=== PATIENT | male | born 1970 | race African-American/Black ===

== ENCOUNTER 2018-03-27 18:16 | Observation (INO) ==
[2018-03-27] MEDS ORDERED: SODIUM CHLORIDE 0.9% 1,000 ML IV STA ×2 (18:59→20:20)
[2018-03-27] MEDS ORDERED: INSULIN REGULAR 100 UNIT/ML IV STA (19:00)
[2018-03-27 19:26] LABS: Basophils % 0.4 % (0.0-0.8); Eosinophils # 0.1 10*3/uL (0.0-0.87); Eosinophils % 1.5 % (0.00-10.9); Hematocrit 42.6 VOL% (42.0-52.0); Immature Granulocytes % 0.3 %; Immature Granulocytes Absolute 0.02 #; Lymphocytes # 1.4 10*3/uL (1.4-4.0); Lymphocytes % 19.7 % (21.2-54.2); Mean Corpuscular HGB Conc 35.2 GM/DL (32-36); Mean Corpuscular Hemoglobin 32 PG (27-34); Mean Corpuscular Volume 90.3 FL (87-102); Mean Platelet Volume 12.4 FL (9.6-12.0); Monocytes # 0.6 10*3/uL (0.11-0.8); Neutrophils # 4.9 10*3/uL (1.4-7.4); Neutrophils % 69.1 % (38.7-73.9); Platelet Count 153 T/CUMM (130-400); Red Blood Count 4.72 MC/CUMM (3.8-5.5); White Blood Count 7.1 T/CUMM (4-12)
[2018-03-27 19:42] LABS: Apearance,Urine CLEAR (Clear); Bilirubin,Urine Negative (Negative); Blood, Urine Negative (Negative); Glucose,Urine (UA) >=500 mg/dL (Negative); Ketones,Urine Negative (Negative); Nitrite,Urine Negative (Negative); Protein,Urine Negative; RBC,Urine 1 /HPF (0-4); Squamous Epithelial Cell,Urine Occasional /HPF (0-10); Urine Color Straw (Yellow); Urine Specific Gravity 1.027 (1.001-1.035); Urine Urobilinogen < 2.0 EU/DL (0.2-1.0); WBC,Urine 1 /HPF (0-6)
[2018-03-27 19:46] LABS: Barbiturates Screen,Urine Negative (Negative); Benzodiazepines Screen,Urine Negative (Negative); Cannabinoid Screen,Urine Negative (Negative); Opiate Screen,Urine Negative (Negative); Phencyclidine Screen,Urine Negative (Negative)
[2018-03-27 19:48] LABS: Allen Test Positive; Pt O2 Delivery Device Room Air
[2018-03-27 19:49] LABS: ABG Base Excess 1.5 MMOL/L (-2.5-2.5); ABG HCO3 25.7 MMOL/L (20-26); ABG Oxygen Saturation 95.9 % (95-100); ABG PH 7.399 (7.35-7.45); ABG PO2 79.7 MM HG (80-95); ABG TCO2 23.1 MMOL/L (23-27)
[2018-03-27 19:57] LABS: Alanine Aminotransferase 19 U/L (16-61); Alkaline Phosphatase 91 U/L (45-117); Aspartate Amino Transferase 23 U/L (0-37); Bilirubin,Total < 0.39 MG/DL (0.2-1.0); Blood Urea Nitrogen 13 MG/DL (7-18); Calcium 8.7 MG/DL (8.5-10.1); Osmolality,Calculated 292.5 MOS/KG (273-304); Potassium 4.1 MMOL/L (3.5-5.1); Sodium 132 MMOL/L (136-145); Total Protein 6.9 G/DL (6.4-8.3)
[2018-03-27 20:01] LABS: Glucose 619 MG/DL (74-106)
[2018-03-27 20:36] LABS: Salicylate < 2.8 MG/DL (2.8-20)
[2018-03-27 20:40] LABS: Acetaminophen < 2.0 UG/ML (10-30)
[2018-03-27] MEDS ORDERED: ONDANSETRON 4 MG/2 ML VIAL IV PRN (22:50)
[2018-03-27 22:54] LABS: Thyroid Stimulating Hormone 0.532 uIU/ml (0.358-3.74)
[2018-03-27] MEDS ORDERED: GLUCAGON 1 MG VIAL IM PRN (23:47)
[2018-03-27] MEDS ORDERED: DEXTROSE 50% 25 GM/50 ML VIAL IV PRN (23:47)
[2018-03-28] MEDS ORDERED: INSULIN REGULAR 100 UNIT/ML SUBCUT STA (01:48)
[2018-03-28] MEDS: INSULIN REGULAR 100 UNIT/ML SUBCUT SCH ×5 (02:11→23:58)
[2018-03-28] MEDS: SODIUM CHLORIDE 0.9% 1,000 ML IV SCH ×3 (02:11→21:15)
[2018-03-28 04:57] LABS: Calcium 7.8 MG/DL (8.5-10.1); Osmolality,Calculated 284.4 MOS/KG (273-304); Potassium 3.7 MMOL/L (3.5-5.1)
[2018-03-28] MEDS: PANTOPRAZOLE 40 MG TABLET PO SCH (12:32)
[2018-03-28] MEDS: ENOXAPARIN 40 MG/0.4 ML SYRINGE SUBCUT SCH (12:33)
[2018-03-28] MEDS ORDERED: INSULIN GLARGINE 100 UNIT/ML SUBCUT SCH (21:00)
[2018-03-29] MEDS: INSULIN REGULAR 100 UNIT/ML SUBCUT SCH ×2 (05:38→11:57)
[2018-03-29] MEDS: SODIUM CHLORIDE 0.9% 1,000 ML IV SCH ×2 (05:38→11:55)
[2018-03-29] MEDS: ENOXAPARIN 40 MG/0.4 ML SYRINGE SUBCUT SCH (08:59)
[2018-03-29] MEDS: PANTOPRAZOLE 40 MG TABLET PO SCH (08:59)
[2018-03-29 11:48] VITALS: BP 134/83
== END 2018-03-29 15:25 | disposition home or self-care (01) ==
LOC: N.ED 18:16 → N.EDINP 18:16 → N.CC 03-28 03:57 → N.3E 03-28 17:02
PROVIDERS: ADMIT Internal Medicine Geriatric Medicine; ATTEND Internal Medicine Geriatric Medicine